=== PATIENT | male | born 1955 | race Hispanic/Latino ===

== ENCOUNTER 2019-06-04 08:08 | Observation (INO) | payer BC ==
[2019-06-01 11:09] LABS: BASOPHILS # (AUTO) 0.1 (0.0-0.1); BASOPHILS % 0.8 % (0.0-1.0); EOSINOPHILS # (AUTO) 0.1 (0.0-0.4); EOSINOPHILS % 2.3 % (0.0-6.0); HEMATOCRIT 40.7 % (38.2-49.6); HEMOGLOBIN 13.9 g/dL (14.0-18.0); LYMPHOCYTES % 33.4 % (18.0-39.1); MEAN CORPUSCULAR HGB CONC 34.2 g/dL (31-35); MEAN CORPUSCULAR VOLUME 90.8 fL (81-99); MONOCYTES # (AUTO) 0.6 (0.2-0.8); MONOCYTES % 9.5 % (4.4-11.3); NEUTROPHILS # (AUTO) 3.2 (2.1-6.9); NEUTROPHILS % 53.8 % (38.7-80.0); PLATELET COUNT 209 x10e3/uL (140-360); RED BLOOD COUNT 4.48 x10e6/uL (4.3-5.7); RED CELL DISTRIBUTION WIDTH 12.9 % (11.7-14.4)
[~2019-06-04] VITALS: Ht 182.9 cm; Wt 82.6 kg
[~2019-06-04 08:08] MED LIST: ROPIVACAINE 246.25 MG, EPINEPHRINE HCL 1:1000 1ML 0.5 MG, CLONIDINE HCL 0.08 MG, KETORO... INJ ONE
[2019-06-04] MEDS ORDERED: CELECOXIB 200 MG CAP ONE (08:48)
[2019-06-04] MEDS ORDERED: DEXAMETHASONE SOD PHOS 10 MG/1 ML VIAL ONE (08:48)
[2019-06-04] MEDS ORDERED: CEFAZOLIN SOD 1 GM/NS 50ML 100 ML IV ONE (08:49)
[2019-06-04] MEDS ORDERED: GABAPENTIN 300 MG CAP ONE (08:49)
[2019-06-04] MEDS ORDERED: pain med PO (09:14)
[2019-06-04] MEDS ORDERED: VANCOMYCIN HCL 1,000 MG ONE (09:35)
[2019-06-04] MEDS ORDERED: BACITRACIN 50,000 UNIT VIAL ONE (09:35)
[2019-06-04] MEDS ORDERED: TRANEXAMIC ACID 1,000 MG/10 ML ML ONE (09:35)
[2019-06-04] MEDS ORDERED: SODIUM CHLORIDE 0.9% 500ML 500 ML ONE (10:06)
[2019-06-04] MEDS ORDERED: IBUPROFEN 800MG/ 250ML 250 ML IV ONE (10:34)
[2019-06-04] MEDS ORDERED: SODIUM CHLORIDE 0.9% 1000ML 1,000 ML IV SCH (11:23)
[2019-06-04] MEDS ORDERED: HYDROCODONE/APAP 7.5MG-325MG 1 EA TAB PO PRN (11:30)
[2019-06-04] MEDS ORDERED: DIPHENHYDRAMINE HCL INJ 50 MG/ML VIAL IM/IV PRN (11:30)
[2019-06-04] MEDS ORDERED: PROMETHAZINE HCL (IM) 25 MG/ML VIAL INJ PRN (11:30)
[2019-06-04] MEDS ORDERED: KETOROLAC TROMETHAMINE 30 MG/ML VIAL IV PRN (11:30)
[2019-06-04] MEDS ORDERED: HYDROCODONE/APAP 5MG-325MG TAB PO PRN (11:30)
[2019-06-04] MEDS ORDERED: DOCUSATE SODIUM 100 MG CAP PO PRN (11:30)
[2019-06-04] MEDS ORDERED: ZOLPIDEM TARTRATE 5 MG TAB PO PRN (11:30)
[2019-06-04] MEDS ORDERED: ACETAMINOPHEN 650 MG SUPP PR PRN (11:30)
[2019-06-04] MEDS ORDERED: ONDANSETRON HCL INJ 2MG/ML 2ML 2 MG/ML VIAL IV PRN (11:30)
[2019-06-04] MEDS ORDERED: FENTANYL CITRATE/PF 100MCG/2 ML INJ ONE ×2 (12:11→15:00)
[2019-06-04] MEDS ORDERED: KETOROLAC TROMETHAMINE 30 MG/ML VIAL ONE (12:11)
--- NOTE | 2019-06-04 13:10 | Diagnostic Imaging Report ---
EXAMINATION: KNEE LEFT 1-2 VIEWS INDICATION: Postoperative COMPARISON: None FINDINGS: Immediate postoperative portable AP and crosstable radiographs were obtained. There are postoperative findings of left total knee replacement. Alignment is anatomic. No unexpected fracture. Hardware is intact. Postoperative subcutaneous emphysema and small joint effusion. IMPRESSION: Anatomic alignment status post left total knee replacement. Signed by: Genesis Salazar MD on 06/04/2019 1:07 PM
[2019-06-04] MEDS ORDERED: DEXAMETHASONE SOD PHOS INJ 4 MG/ML VIAL ONE (14:02)
[2019-06-04] MEDS ORDERED: SEVOFLURANE INHAL SOLN 250 ML PEN BTL ONE (14:02)
[2019-06-04] MEDS ORDERED: ONDANSETRON HCL INJ 2MG/ML 2ML 2 MG/ML VIAL ONE (14:02)
[2019-06-04] MEDS ORDERED: LIDOCAINE HCL 2% LOCAL INJ 5 ML SDV VIAL INJ ONE (14:02)
[2019-06-04] MEDS ORDERED: PROPOFOL IV EMULSION 10 MG/ML 20 ML VIAL ONE (14:02)
--- NOTE | 2019-06-04 14:11 | NUR ---
Pt arrived via stretcher with assist x1. A&O x3, resp WNL, no c/o pain. IV to R hand, patent, no swelling or redness observed to insertion site. IV fluids being administered at this time. WILMA wrap to R knee, dressing CDI. SCD in place, foot pumps on order. Ice pack to R knee. Patient given sandwich, tolerated well, no N/V. Call light within reach, bed in lowest position.
[2019-06-04] MEDS ORDERED: MIDAZOLAM HCL 2 MG/2 ML VIAL ONE (15:00)
[2019-06-04 15:32] VITALS: BP 110/62
[2019-06-04 16:04] VITALS: BP 110/62
--- NOTE | 2019-06-04 16:05 | NUR ---
Ambulated with PT, assitance x1 with walker.
[2019-06-04 16:52] VITALS: BP 116/59
[2019-06-04 17:16] VITALS: BP 128/62
[2019-06-04] MEDS: ASPIRIN 325 MG TAB PO SCH (17:21)
[2019-06-04] MEDS: CEFAZOLIN SOD 1 GM/NS 50ML 50 ML IV SCH (17:21)
[2019-06-04] MEDS: CELECOXIB 200 MG CAP PO SCH (17:21)
[2019-06-04] MEDS: ACETAMINOPHEN 1000 MG/100 ML IV SCH (18:00)
--- NOTE | 2019-06-04 18:15 | Operative Report ---
DATE OF PROCEDURE: 06/04/2019 SURGEON: Vamshi Suazo MD DIRECTOR OF VITAL STATISTICS: Tal Alonso, certified PA. PREOPERATIVE DIAGNOSIS: Osteoarthritis, left knee. POSTOPERATIVE DIAGNOSIS: Osteoarthritis, left knee. PROCEDURE: Left total knee arthroplasty. INDICATIONS: The patient is a 63-year-old gentleman, who has end-stage varus arthritis of both knees. He has failed conservative management and would like to proceed with definitive intervention. He would like to have the left side done first. The risks and benefits of knee replacement surgery have been explained. All of his questions have been answered. He states he understands and wishes to proceed. PROCEDURE IN DETAIL: The patient was brought to the operating room and placed under general anesthetic. He received prophylactic antibiotics, a regional block and tranexamic acid in the holding area. His left lower extremity was prepped and draped in a sterile manner. A preoperative time-out was performed. The extremity was exsanguinated and a proximal tourniquet was inflated to 300 mmHg. An anterior approach with a medial parapatellar arthrotomy was performed. A slightly more aggressive medial release was performed due to the varus deformity. The knee was brought up into flexion with the patella everted. Meniscal remnants and marginal osteophytes were removed. The cruciate ligaments were sacrificed. A Pati [employer] Persona medial congruent knee system was used throughout the case. Once the tibia was adequately exposed, an extramedullary cutting guide was used to resect the tibial base plate. The slope was dialed in to match the existing slope. The tibial base plate was noted to be a size H. The central fin punch was drilled and impacted and attention was directed towards the distal femur. An intramedullary cutting guide was used to resect the distal femur in 5 degrees of valgus and rotation referencing off a combination of landmarks including Whitesides line, the epicondylar axis and the posterior condyles. The femoral component was a size #11. Trial reductions were performed. An 11 mm medial congruent polyethylene insert was felt to provide appropriate soft tissue balancing in full extension and 90 degrees of flexion. The patella was resurfaced with a 38 mm patellar button. The thickness was checked before and after and was right around 25 mm. Patellar tracking was concentric. The trial implants were removed. A 100 mL premixed pericapsular AMANDA injection was placed into the surrounding soft tissue. The knee was thoroughly irrigated with a shower tip pulsatile lavage. All bone cuts had been irrigated with a spray mixture of diluted polymyxin and vancomycin spray. The components were cemented into place using a single mix of Palacos cement preloaded with antibiotics. Care was taken to remove extravasated cement. The wound was further irrigated while the cement cured. The arthrotomy was then closed with interrupted #1 Ethibond. The knee was put through flexion and extension to ensure a secure closure. The skin was closed with subcuticular Vicryl and blade. A sterile bandage was applied. The patient was extubated and transported to the recovery room in stable condition. Blood loss was minimal. All needle and sponge counts were correct. Vamshi Suazo MD DR/RISA /[id number]
--- NOTE | 2019-06-04 19:00 | NUR ---
received report from day nurse. patient is resting comfortably in bed. bed is in lowest position and call light is within reach. will continue to monitor patient.
[2019-06-04 20:00] VITALS: BP 105/57
[2019-06-04 20:48] VITALS: BP 105/57
[2019-06-05] VITALS: BP 98/55
[2019-06-05] MEDS: CEFAZOLIN SOD 1 GM/NS 50ML 50 ML IV SCH ×2 (01:32→08:05)
[2019-06-05 04:00] VITALS: BP 92/56
[2019-06-05] MEDS: ACETAMINOPHEN 1000 MG/100 ML IV SCH ×2 (05:20)
[2019-06-05 05:51] LABS: HEMATOCRIT 32.9 % (38.2-49.6); HEMOGLOBIN 11.1 g/dL (14.0-18.0)
--- NOTE | 2019-06-05 06:45 | NUR ---
report given to day nurse. patient is resting comfortably in bed. bed is in lowest position and call light is within reach.
[2019-06-05 07:30] VITALS: BP 104/53
[2019-06-05 08:03] VITALS: BP 104/53
[2019-06-05] MEDS: CELECOXIB 200 MG CAP PO SCH (08:05)
[2019-06-05] MEDS: ASPIRIN 325 MG TAB PO SCH (08:05)
--- NOTE | 2019-06-05 08:39 | Consultation ---
DATE OF CONSULTATION: 06/05/2019 REASON FOR CONSULTATION: Medical management. HISTORY OF PRESENT ILLNESS: This is a 63-year-old [place] man, who was initially admitted to [facility] on June 04, 2019 with diagnosis of advanced left knee osteoarthritis. The patient underwent successful left total knee arthroplasty on June 04, 2019, which was performed by his orthopedic surgeon, namely Dr. Vamshi Suazo. The patient tolerated surgery quite well. The patient states his pain is controlled. The patient states yesterday he did participate in physical therapy. The patient states that his right knee joint also has advanced arthritis and may be repaired in the near future. Blood work done today on June 05, 2019 revealed hemoglobin of 11.1 g/dL and hematocrit of 32.9%. REVIEW OF SYSTEMS: GENERAL: Weight has been stable. No fever or chills. HEENT: No headaches. No visual changes. CARDIOVASCULAR/RESPIRATORY: No chest pain. No shortness of breath or cough. GI: No nausea, vomiting, or constipation. : No UTI or BPH symptoms. NEUROMUSCULAR: Complains of arthritic pain in the right knee joint. PAST MEDICAL HISTORY: 1. Generalized osteoarthritis. 2. Advanced bilateral knee osteoarthritis. PAST SURGICAL HISTORY: Left total knee replacement on June 04, 2019. FAMILY HISTORY: Noncontributory. SOCIAL HISTORY: This man is , lives with . Denies any tobacco or alcohol use. 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 ALLERGIES: NO KNOWN DRUG ALLERGIES. HOME MEDICATIONS: Bzvg-[id number]-[id number] anti-inflammatory as needed. PHYSICAL EXAMINATION: GENERAL: He is awake, alert, fluent, pleasant, cooperative with exam. His and adult son are at bedside. VITAL SIGNS: Blood pressure is 90/56, pulse 52, respiratory rate 18, oxygen saturation 94%, temperature 97.2. Height 6 feet 0 inches, weight 182 pounds, BMI 24. INTEGUMENT: Skin is warm and dry. No pallor, jaundice, or diaphoresis. HEENT: Anicteric sclerae. Moist mucous membranes. NECK: Supple. CARDIOVASCULAR: Regular rate and rhythm. LUNGS: No rales, no rhonchi, no wheezes. ABDOMEN: Benign. EXTREMITIES: He has osteoarthritic joint deformities in his hands, namely Heberden's and Polina's nodes. No edema in legs. The left knee surgical incisions dressed. Patient has pronounced right knee varus deformity secondary to advanced degenerative joint disease. NEUROLOGICAL: Intact. DIAGNOSES: 1. Status post left total knee replacement. 2. Generalized osteoarthritis. 3. Right knee degenerative joint disease. PLAN: 1. Mobilize physical therapy. 2. Pain control. 3. Encourage incentive spirometry to prevent atelectasis. 4. The patient most likely will be discharged home today. I would like to thank, Dr. Suazo for this generous consult. MD JUSTUS Hair/RISA /[id number]
[2019-06-05] MEDS ORDERED: ASPIR 8181 MG PO (11:02)
[2019-06-05] MEDS ORDERED: ACETAMINOPHEN 1000 MG/100 ML IV PRN (11:30)
[2019-06-05 12:01] VITALS: BP 107/58
--- NOTE | 2019-06-05 12:04 | NUR ---
ORDERS REC'D FROM DR SALEH'S OFFICE FOR HOME HEALTH AND DME PRE-ARRANGED BY DR SALEH'S OFFICE PRIOR TO SURGERY CHOICE LETTER SIGNED AND ON CHART COPY TO PT ALONG WITH MY CARD PLACED IN CARE TRANSITIONS FOLDER INTERPRETOR BY JAZMINE Mcghee
--- NOTE | 2019-06-05 12:07 | NUR ---
HOME HEALTH DISCHARGE NOTE PATIENT ADDRESS WHERE SERVICE FREDIS BE RECEIVED: [id number] [place] [address] PATIENT CONTACT NUMBER: [phone] NAME OF HOME HEALTH COMPANY: [facility] PROVID[facility] TELEPHONE/FAX NUMBER OF [facility]: [phone] ADDRESS OF [place]: [address] [facility] [address] [address] [place] [address] SERVICES TO RECEIVE: LONG-TERM HOME PT/OT EVAL AND TREAT ANTICIPATED DATE SERVICES WILL BEGING: Tue06/06/19 DME: DELIVERED TO HOME BY [employer]/LAST PH: [phone] WALKER WITH WHEELS, CPM AND 3 IN 1 COMMODE PLEASE CALL THE COMPANY ABOVE IF YOU HAVE NOT RECEIVED A CALL TO SCHEDULE A HOME VISIT WITHIN 24 HRS OF DISCHARGE
--- NOTE | 2019-06-05 12:14 | NUR ---
Right hand IV discontinued. No signs of infiltration noted. 2x2 gauze and tape placed. Taken via wheelchair by PCT to personal car. Accompanied by AAOX4 to time, person, place, situation. Respirations even and unlabored. Aquacel dressing to right knee clean, dry, and intact. Discharge instructions and all personal belongings taken with patient. No rx available at this time. Rx to be faxed by Bryson ALVARADO. Addendum: 06/05/19 at 1633 by MEDARDO SOSA RN Aquacel dressing to left knee
== END 2019-06-05 12:14 | disposition home health service (06) ==
LOC: OR 08:08 → PACU V 11:24 → MED/SURG 14:11
PROVIDERS: ADMIT Specialist; ATTEND Specialist
DX: M17.12 Unilateral primary osteoarthritis, left knee (principal); Z01.810 Encounter for preprocedural cardiovascular examination; Z01.812 Encounter for preprocedural laboratory examination; Z01.818 Encounter for other preprocedural examination
CPT/HCPCS: 27447; 36415 ×2; 73560; 85014; 85018; 85025; 86850; 86900; 86920; 97116 ×2; 97139; 97161; 97530 ×2; C1713; G0378 ×2; J0131 ×2; J0171; J0690 ×2; J1100 ×2; J1885; J2001; J2250; J2405; J2704; J2795; J3010; J3370; J7030 ×2; J7040; C1776

== ENCOUNTER 2019-08-14 06:15 | Observation (INO) | payer BC ==
[2019-08-13 10:04] LABS: BASOPHILS # (AUTO) 0.1 (0.0-0.1); BASOPHILS % 0.9 % (0.0-1.0); EOSINOPHILS # (AUTO) 0.2 (0.0-0.4); EOSINOPHILS % 3.5 % (0.0-6.0); HEMATOCRIT 39.6 % (38.2-49.6); HEMOGLOBIN 13.4 g/dL (14.0-18.0); LYMPHOCYTES # (AUTO) 1.9 (1.0-3.2); LYMPHOCYTES % 33.3 % (18.0-39.1); MEAN CORPUSCULAR HEMOGLOBIN 30.2 pg (28-32); MEAN CORPUSCULAR HGB CONC 33.8 g/dL (31-35); MEAN CORPUSCULAR VOLUME 89.2 fL (81-99); MONOCYTES # (AUTO) 0.6 (0.2-0.8); MONOCYTES % 10.8 % (4.4-11.3); NEUTROPHILS # (AUTO) 2.9 (2.1-6.9); NEUTROPHILS % 51.1 % (38.7-80.0); PLATELET COUNT 190 x10e3/uL (140-360); RED BLOOD COUNT 4.44 x10e6/uL (4.3-5.7)
[~2019-08-14] VITALS: Ht 182.9 cm; Wt 82.3 kg
[~2019-08-14 06:15] MED LIST changes: +ADVIL200 M1 PO; +ASPIR 8181 MG PO; -ROPIVACAINE 246.25 MG, EPINEPHRINE HCL 1:1000 1ML 0.5 MG, CLONIDINE HCL 0.08 MG, KETORO... INJ ONE; +pain med PO
[2019-08-14] MEDS ORDERED: VANCOMYCIN HCL 1,000 MG ONE (06:42)
[2019-08-14] MEDS ORDERED: SODIUM CHLORIDE 0.9% 500ML 500 ML ONE (06:42)
[2019-08-14] MEDS ORDERED: TRANEXAMIC ACID 1,000 MG/10 ML ML ONE (06:43)
[2019-08-14] MEDS ORDERED: BACITRACIN 50,000 UNIT VIAL ONE (06:43)
[2019-08-14] MEDS ORDERED: DEXAMETHASONE SOD PHOS 10 MG/1 ML VIAL ONE (06:44)
[2019-08-14] MEDS ORDERED: GABAPENTIN 300 MG CAP ONE (06:44)
[2019-08-14] MEDS ORDERED: CEFAZOLIN SOD 1 GM/NS 50ML 100 ML IV ONE (06:44)
[2019-08-14] MEDS ORDERED: CELECOXIB 200 MG CAP ONE (06:44)
[2019-08-14] MEDS ORDERED: ROPIVACAINE 246.25 MG, EPINEPHRINE HCL 1:1000 1ML 0.5 MG, CLONIDINE HCL 0.08 MG, KETORO... INJ ONE ×5 (08:00)
[2019-08-14] MEDS ORDERED: KETOROLAC TROMETHAMINE 30 MG/ML VIAL IV PRN (10:00)
[2019-08-14] MEDS ORDERED: ONDANSETRON HCL INJ 2MG/ML 2ML 2 MG/ML VIAL IV PRN (10:00)
[2019-08-14] MEDS ORDERED: HYDROCODONE/APAP 7.5MG-325MG 1 EA TAB PO PRN (10:00)
[2019-08-14] MEDS ORDERED: DIPHENHYDRAMINE HCL INJ 50 MG/ML VIAL IM/IV PRN (10:00)
[2019-08-14] MEDS ORDERED: HYDROCODONE/APAP 5MG-325MG TAB PO PRN (10:00)
[2019-08-14] MEDS ORDERED: DOCUSATE SODIUM 100 MG CAP PO PRN (10:00)
[2019-08-14] MEDS ORDERED: PROMETHAZINE HCL (IM) 25 MG/ML VIAL IM PRN (10:00)
[2019-08-14] MEDS ORDERED: ZOLPIDEM TARTRATE 5 MG TAB PO PRN (10:00)
[2019-08-14] MEDS ORDERED: FENTANYL CITRATE/PF 100MCG/2 ML INJ ONE ×2 (10:18→14:56)
--- NOTE | 2019-08-14 10:28 | Operative Report ---
DATE OF PROCEDURE: 08/14/2019 SURGEON: Vamshi Suazo MD [employer] PROGRAMMER: Joey Alonso, certified PA. PREOPERATIVE DIAGNOSIS: Osteoarthritis, right knee. POSTOPERATIVE DIAGNOSIS: Osteoarthritis, right knee. PROCEDURE: Right total knee arthroplasty. INDICATIONS: The patient is an active 63-year-old gentleman, who has severe end-stage arthritis of his right knee. He has failed conservative management and would like to proceed with a right knee replacement. He recently had his left knee replaced. He understands the potential risks and benefits. All of his questions have been answered. He states he understands and wishes to proceed. PROCEDURE IN DETAIL: The patient was taken to the operating room and placed under general anesthetic. He received prophylactic antibiotics, a regional block and tranexamic acid in the holding area. His right lower extremity was prepped and draped in a sterile manner. A preoperative time-out was performed. The extremity was exsanguinated and a proximal tourniquet was inflated to 300 mmHg. An anterior incision with a medial parapatellar arthrotomy was performed. A slightly more aggressive varus release was necessary. The knee was brought up into flexion with the patella everted. Meniscal remnants and marginal osteophytes were removed. The cruciate ligaments were removed. A Pati Persona knee system with a medial congruent tibial insert was used throughout the case. An extramedullary cutting guide was used to resect the proximal tibia. The tibial base plate was a size H. The central fin punch was drilled and impacted. Attention was directed towards the distal femur. An intramedullary cutting guide was used to resect the distal femur in 5 degrees of valgus, and rotation referencing off a combination of landmarks including Whitesides line, the epicondylar axis and the posterior condyles. The femoral component was a size 11. The anterior and posterior cuts were made. A trial reduction was performed. A 10 mm medial congruent tibial insert provided appropriate soft tissue balancing in full extension and 90 degrees of flexion. The patella was resurfaced with a 38 mm patellar button. The thickness was checked before and after resurfacing, and it was 26 mm each time. Patellar tracking was concentric. The trial implants were removed. A 100 mL premixed pericapsular AMANDA injection was placed into the surrounding soft tissue. The knee was thoroughly irrigated with a shower tip pulsatile lavage. All bone cuts had been irrigated with a diluted mixture of polymyxin and vancomycin spray. The components were cemented into place using a single mix of high viscosity Biomet cement preloaded with antibiotics. Care was taken to remove extravasated cement. The wound was further irrigated while the cement cured. The arthrotomy was closed after sprinkling 500 mg of vancomycin powder into the joint. The arthrotomy was closed with interrupted #1 Ethibond sutures. The knee was put through flexion and extension to ensure a secure closure. The skin was closed with subcuticular Vicryl and blade. A sterile Aquacel bandage and an Rg wrap were applied. The patient was extubated and transported to the recovery room in stable condition. Blood loss was minimal. All needle and sponge counts were correct. Vamshi Suazo MD DR/RISA /[id number]
--- NOTE | 2019-08-14 10:33 | Diagnostic Imaging Report ---
EXAM: KNEE RIGHT 1-2 VIEWS DATE: 08/14/2019 9:46 AM INDICATION: Post-op COMPARISON: 06/04/2019 FINDINGS: Immediate postoperative AP and crosstable views were obtained of the right knee. There are postsurgical changes from total right knee replacement. Hardware appears intact and in anatomic alignment. There is no evidence for acute fracture or dislocation. There is subcutaneous emphysema and joint effusion present, likely postsurgical. IMPRESSION: Expected postsurgical changes from recent right knee arthroplasty. Signed by: Dr. Jamshid Casas MD on 08/14/2019 10:30 AM
--- NOTE | 2019-08-14 10:50 | NUR ---
Received patient via stretcher from PACU. AAOX4 to time, person, place, situation. O2 1L NC. Respirations even and unlabored. Aquacel Dressing to left knee clean, dry, and intact. Wrapped with WILMA wrap. Oriented to room. Instructed to use call light for assistance.
[2019-08-14 11:30] VITALS: BP 133/74
[2019-08-14] MEDS: SODIUM CHLORIDE 0.9% 1000ML 1,000 ML IV SCH ×2 (11:30→21:30)
[2019-08-14] MEDS: ACETAMINOPHEN 1000 MG/100 ML IV SCH ×2 (11:40→16:45)
[2019-08-14] MEDS ORDERED: INFLUENZA VIRUS VAC SPLIT INJ 0.5 ML SYR IM SCH (13:00)
[2019-08-14 13:49] VITALS: BP 133/74
[2019-08-14] MEDS ORDERED: LIDOCAINE HCL 2% LOCAL INJ 5 ML SDV VIAL INJ ONE (14:06)
[2019-08-14] MEDS ORDERED: ONDANSETRON HCL INJ 2MG/ML 2ML 2 MG/ML VIAL ONE (14:06)
[2019-08-14] MEDS ORDERED: SEVOFLURANE INHAL SOLN 250 ML PEN BTL ONE (14:06)
[2019-08-14] MEDS ORDERED: DEXAMETHASONE SOD PHOS INJ 4 MG/ML VIAL ONE (14:06)
[2019-08-14] MEDS ORDERED: PROPOFOL IV EMULSION 10 MG/ML 20 ML VIAL ONE (14:06)
--- NOTE | 2019-08-14 14:10 | NUR ---
Visit made by the Spiritual Care Department Pastoral Visitor, Sharonda Nuñez. PV provided pastoral presence, prayer, hospitality, and supportive listening. Pastoral Visitor informed pt/family of the scope of [employer] and availability. JAMAAL CROWELL Director Of Media Spiritual Care Department O: [phone] Pager: [phone] ([phone] number calling from)
--- NOTE | 2019-08-14 14:30 | NUR ---
Patient voided clear yellow urine
[2019-08-14] MEDS ORDERED: LIDOCAINE 2%/ EPINEPHRINE 20ML MDV ONE (14:46)
[2019-08-14] MEDS ORDERED: ROPIVACAINE 0.5% 5 MG/ML 30 ML SDV ONE (14:46)
[2019-08-14] MEDS ORDERED: MIDAZOLAM HCL 2 MG/2 ML VIAL ONE (14:56)
[2019-08-14] MEDS: CEFAZOLIN SOD 1 GM/NS 50ML 50 ML IV SCH ×2 (15:00→21:58)
[2019-08-14] MEDS: ASPIRIN 325 MG TAB PO SCH (16:45)
[2019-08-14] MEDS: CELECOXIB 200 MG CAP PO SCH (16:45)
[2019-08-14 17:32] VITALS: BP 116/58
--- NOTE | 2019-08-14 19:00 | NUR ---
RECEIVED PATIENT IN BEDSIDE REPORT. PATIENT RESTING IN BED AT THIS TIME. CPM ACTIVE AT 50 DEGREES. NO PAIN REPORTED. NO S&S OF DISTRESS NOTED. BED LOCKED IN LOWEST POSITION, SIDE RAILS UPX2, CALL LIGHT IN REACH.
--- NOTE | 2019-08-14 19:15 | NUR ---
Report given to oncoming nurse of patients status. Resting in bed. No s/s of acute distress noted. CPM machine on at 50. at bedside.Side rails upx2, call light within reach.
[2019-08-14 20:00] VITALS: BP 97/54
[2019-08-14 20:51] VITALS: BP 97/54
[2019-08-15] VITALS: BP 103/57
[2019-08-15 04:00] VITALS: BP 100/56
--- NOTE | 2019-08-15 05:15 | NUR ---
PATIENT PLACED ON CPM, 60 DEGREES AT THIS TIME.
[2019-08-15] MEDS: CEFAZOLIN SOD 1 GM/NS 50ML 50 ML IV SCH (05:36)
[2019-08-15 06:06] LABS: HEMATOCRIT 33.9 % (38.2-49.6); HEMOGLOBIN 11.2 g/dL (14.0-18.0)
[2019-08-15] MEDS: ACETAMINOPHEN 1000 MG/100 ML IV SCH ×2 (06:24)
[2019-08-15] MEDS: SODIUM CHLORIDE 0.9% 1000ML 1,000 ML IV SCH (07:30)
[2019-08-15 07:55] VITALS: BP 112/72
[2019-08-15 08:13] VITALS: BP 112/72
[2019-08-15] MEDS: CELECOXIB 200 MG CAP PO SCH (08:20)
[2019-08-15] MEDS: ASPIRIN 325 MG TAB PO SCH (08:20)
[2019-08-15] MEDS ORDERED: ONDANSETRON HCL 4 MG ORAL DISINTEGRATING TAB PO PRN (08:30)
--- NOTE | 2019-08-15 10:20 | NUR ---
patient alert and oriented with at bedside. discharge instructions given at this time, patient verbalized understanding. IV discontinued, catheter in tact and small dressing applied. patient to be wheeled out to personal auto for to drive home.
--- NOTE | 2019-08-15 10:48 | NUR ---
Spoke to Patient and . His address and phone number are correct on facesheet, notified home care providers [phone]. Also Patient states he has already received his DME from [employer] [phone] and already has a walker from his last knee surgery
--- NOTE | 2019-08-15 11:42 | Consultation ---
DATE OF CONSULTATION: REASON FOR CONSULTATION: Postop medical management. HISTORY OF PRESENT ILLNESS: The patient is a 63-year-old gentleman with osteoarthritis, who is status post right knee arthroplasty for end-stage osteoarthritis. He is doing well postoperatively and states his pain is very minimal around the right knee. REVIEW OF SYSTEMS: Denies any fever, chills, nausea, vomiting, headache, shortness of breath, or dizziness. PAST MEDICAL HISTORY: Arthritis. MEDICATIONS: See MAR. ALLERGIES: NONE. SOCIAL HISTORY: Nonsmoker, nondrinker. Lives at home with his . FAMILY HISTORY: Noncontributory. PHYSICAL EXAMINATION: VITAL SIGNS: Temperature 97.9, pulse 74, blood pressure 103/57, sats 93% on room air. GENERAL: No apparent distress, lying in bed. NECK: Supple. CARDIOVASCULAR: Regular rate and rhythm. LUNGS: Clear to auscultation bilaterally. ABDOMEN: Good bowel sounds. Soft, nontender. EXTREMITIES: No clubbing or cyanosis. NEUROLOGIC: Nonfocal. ASSESSMENT AND PLAN: 1. Right knee pain. Continue with postoperative care as well as physical therapy and pain control. 2. Anemia. Check a CBC. Please see hospital chart for full details. MD SUSANNE Gates/RISA /[id number]
[2019-08-15] MEDS ORDERED: ACETAMINOPHEN 1000 MG/100 ML IV PRN (12:00)
[2019-08-15] MEDS ORDERED: ACETAMINOPHEN 650 MG SUPP PR PRN (12:00)
--- NOTE | 2019-08-20 08:48 | NUR ---
Spoke to son, he states company has not been out. Gave him number to call, and am following up with papo
--- NOTE | 2019-08-20 09:16 | NUR ---
Spoke with yariel at home care providers, she states they did not receive the order. Resent order and facesheet.
== END 2019-08-15 12:17 | disposition home health service (06) ==
LOC: OR 06:15 → PACU V 09:47 → MED/SURG 10:53
PROVIDERS: ADMIT Specialist; ATTEND Specialist
DX: M17.11 Unilateral primary osteoarthritis, right knee (principal); Z01.810 Encounter for preprocedural cardiovascular examination; Z01.812 Encounter for preprocedural laboratory examination; Z96.652 Presence of left artificial knee joint; Z47.1 Aftercare following joint replacement surgery; D64.9 Anemia, unspecified
CPT/HCPCS: 27447; 36415 ×2; 73560; 85014; 85018; 85025; 86850; 86900; 86920; 93005; 97116 ×2; 97161; 97530; C1713; C1776 ×3; G0378 ×2; J0131; J0171; J0690 ×2; J1100 ×2; J1885; J2001 ×2; J2250; J2405; J2704; J2795; J3010; J3370; J7030; J7040

== ENCOUNTER 2019-08-20 16:52 | Observation (INO) | payer BC ==
[~2019-08-20] VITALS: Ht 182.9 cm; Wt 82.1 kg
[~2019-08-20 16:52] MED LIST changes: -ELIQUIS5 MG PO; -HYDROCODON-ACE1 EA12 PO
[2019-08-20 17:29] LABS: BASOPHILS # (AUTO) 0.1 (0.0-0.1); BASOPHILS % 0.6 % (0.0-1.0); EOSINOPHILS # (AUTO) 0.2 (0.0-0.4); EOSINOPHILS % 2.3 % (0.0-6.0); HEMATOCRIT 35.1 % (38.2-49.6); HEMOGLOBIN 11.7 g/dL (14.0-18.0); LYMPHOCYTES # (AUTO) 1.7 (1.0-3.2); LYMPHOCYTES % 20.2 % (18.0-39.1); MEAN CORPUSCULAR HEMOGLOBIN 29.9 pg (28-32); MEAN CORPUSCULAR HGB CONC 33.3 g/dL (31-35); MEAN CORPUSCULAR VOLUME 89.8 fL (81-99); MONOCYTES # (AUTO) 1.1 (0.2-0.8); MONOCYTES % 13.3 % (4.4-11.3); NEUTROPHILS # (AUTO) 5.4 (2.1-6.9); NEUTROPHILS % 62.7 % (38.7-80.0); PLATELET COUNT 200 x10e3/uL (140-360); RED BLOOD COUNT 3.91 x10e6/uL (4.3-5.7); RED CELL DISTRIBUTION WIDTH 13.2 % (11.7-14.4)
[2019-08-20 17:45] LABS: ALANINE AMINOTRANSFERASE 43 IU/L (0-55); ALBUMIN 3.9 g/dL (3.5-5.0); ALKALINE PHOSPHATASE 132 IU/L (40-150); ANION GAP 15.8 mmol/L (8-16); BLOOD UREA NITROGEN 10 mg/dL (7-26); BUN/CREATININE RATIO 13 (6-25); CALCIUM 9.5 mg/dL (8.4-10.2); CARBON DIOXIDE 26 mmol/L (22-29); CHLORIDE 97 mmol/L (98-107); EST GLOMERULAR FILTRATION RATE > 60 ML/MIN (60-); GLUCOSE 115 mg/dL (74-118); POTASSIUM 3.8 mmol/L (3.5-5.1); SODIUM 135 mmol/L (136-145)
[2019-08-20 17:58] LABS: PROTHROMBIN TIME 13.7 seconds (11.9-14.5)
[2019-08-20 17:59] LABS: PARTIAL THROMBOPLASTIN TIME 34.3 seconds (23.8-35.5)
[2019-08-20] MEDS ORDERED: HYDROCODONE/APAP 7.5MG-325MG 1 EA TAB PO PRN (18:45)
[2019-08-20] MEDS ORDERED: ONDANSETRON HCL INJ 2MG/ML 2ML 2 MG/ML VIAL IV PRN (18:45)
[2019-08-20] MEDS ORDERED: ENOXAPARIN SODIUM INJ 100 MG/ML SYR SC SCH (18:45)
[2019-08-20] MEDS: ENOXAPARIN INJ 80 MG/0.8 ML SYR SC SCH (18:53)
--- NOTE | 2019-08-20 19:17 | Diagnostic Imaging Report ---
EXAMINATION: CHEST SINGLE (PORTABLE) COMPARISON: None INDICATION: ^DVT ^[id number] ^1850 DISCUSSION: Frontal view of the chest obtained at 1852 hours. HEART AND MEDIASTINUM: The cardiomediastinal silhouette is unremarkable. LINES: None. LUNGS: The lungs are mildly hyperinflated suggestive of small airways disease. Calcified granuloma in the lateral right upper lobe measures 5 mm. No pneumonia or pulmonary edema. PLEURA: No pleural effusion or pneumothorax. BONES AND SOFT TISSUES: Degenerative changes of the spine. No focal osseous lesion. The soft tissues are normal. IMPRESSION: No acute cardiopulmonary disease. Signed by: Dr. Chely Bolaños MD on 08/20/2019 7:13 PM
[2019-08-21 01:55] LABS: CREATINE KINASE 72 IU/L (30-200)
[2019-08-21 05:50] LABS: BASOPHILS % 0.5 % (0.0-1.0); EOSINOPHILS # (AUTO) 0.2 (0.0-0.4); EOSINOPHILS % 3.8 % (0.0-6.0); HEMOGLOBIN 10.4 g/dL (14.0-18.0); LYMPHOCYTES # (AUTO) 1.5 (1.0-3.2); LYMPHOCYTES % 23.8 % (18.0-39.1); MEAN CORPUSCULAR HEMOGLOBIN 30.1 pg (28-32); MEAN CORPUSCULAR HGB CONC 33.5 g/dL (31-35); MEAN CORPUSCULAR VOLUME 89.6 fL (81-99); MONOCYTES # (AUTO) 0.9 (0.2-0.8); MONOCYTES % 13.6 % (4.4-11.3); NEUTROPHILS # (AUTO) 3.6 (2.1-6.9); NEUTROPHILS % 57.7 % (38.7-80.0); PLATELET COUNT 200 x10e3/uL (140-360); RED BLOOD COUNT 3.46 x10e6/uL (4.3-5.7); RED CELL DISTRIBUTION WIDTH 13.2 % (11.7-14.4)
[2019-08-21 06:08] LABS: ALANINE AMINOTRANSFERASE 35 IU/L (0-55); ALBUMIN 3.2 g/dL (3.5-5.0); ALKALINE PHOSPHATASE 98 IU/L (40-150); ANION GAP 12.2 mmol/L (8-16); BLOOD UREA NITROGEN 12 mg/dL (7-26); BUN/CREATININE RATIO 15 (6-25); CALCIUM 8.7 mg/dL (8.4-10.2); CARBON DIOXIDE 27 mmol/L (22-29); CHLORIDE 101 mmol/L (98-107); CREATINE KINASE 65 IU/L (30-200); CREATININE, SERUM 0.81 mg/dL (0.72-1.25); EST GLOMERULAR FILTRATION RATE > 60 ML/MIN (60-); GLUCOSE 105 mg/dL (74-118); POTASSIUM 4.2 mmol/L (3.5-5.1); SODIUM 136 mmol/L (136-145)
[2019-08-21] MEDS ORDERED: HYDROCODON-ACE1 EA12 PO (06:33)
[2019-08-21] MEDS ORDERED: ELIQUIS5 MG PO (06:57)
[2019-08-21] MEDS: ENOXAPARIN INJ 80 MG/0.8 ML SYR SC SCH (07:06)
--- NOTE | 2019-08-21 09:52 | NUR ---
Orders for discharge noted. Called Dr. Suazo to see if ok to discharge home. Dr. Suazo stated ok to discharge patient, states he saw the patient in clinic already and patient has a f/u appointment scheduled already.
--- NOTE | 2019-08-21 14:43 | NUR ---
Called Dr. Ayaz Suarez and informed him that the patient was Ok to discharge per Dr. Suazo and Nawaf, LESTER. Dr. Suarez stated he will have the f/u outpatient in his office next week. Spoke with office staff Cristina and scheduled an appointment on TuesdayAugust 29 @1030 for the patient.
--- NOTE | 2019-08-22 17:38 | Discharge Summary ---
ADMISSION DIAGNOSIS: Right lower extremity deep vein thrombosis. DISCHARGE DIAGNOSIS: Right lower extremity deep vein thrombosis. HISTORY: Osteoarthritis. SURGICAL HISTORY: Bilateral total knee replacement. FAMILY HISTORY: Noncontributory. SOCIAL HISTORY: Noncontributory. HOSPITAL COURSE: A 63-year-old male with past medical history of right TKA on 08/14/2019, admits with complaints of worsening redness and swelling of the right lower extremity. He says the pain is controlled and the bruising is improving. The patient had a venous Doppler that showed a DVT in the right lower extremity. He was initially started on Lovenox and switched to Eliquis at time of discharge. Hematology and Ortho were consulted. The patient was instructed that he would need to be on anticoagulants for at least 6 months. He was given 1 week worth of Eliquis and will follow up with Dr. Suarez for any refill. The patient and son understand discharge instructions and agreed to plan. Hematology and Ortho agreed to discharge. Vital signs stable. The patient is afebrile. Dictated by Lucy Mccracekn NP MD SRIDHAR Daley/MODL /[id number]
== END 2019-08-21 15:56 | disposition home or self-care (01) ==
LOC: ER 16:52 → ERHOLD 18:31 → UNDODISOB 08-21 13:56 → IMCU 08-21 15:13
PROVIDERS: ADMIT Internal Medicine; ATTEND Internal Medicine
DX: I82.431 Acute embolism and thrombosis of right popliteal vein (principal); Z96.651 Presence of right artificial knee joint
CPT/HCPCS: 36415 ×2; 71045; 80053 ×2; 82550; 82553; 84484; 85025 ×2; 85610; 85730; 93005; 96372; 99284; G0378 ×2; J1650 ×2

== ENCOUNTER → 2019-08-20 | Outpatient (CLI) | payer BC ==
[~2019-08-20] MED LIST changes: +ELIQUIS5 MG PO; +HYDROCODON-ACE1 EA12 PO
== END ==
LOC: RAD 14:38
PROVIDERS: ATTEND Specialist
DX: R22.41 Localized swelling, mass and lump, right lower limb (principal)
CPT/HCPCS: 93971